=== PATIENT | male | born 1980 | race Two or more races ===

== ENCOUNTER 2024-06-28 10:25 | Emergency (ER) | payer MEDICAID, OTHER ==
[~2024-06-28] VITALS: Ht 160 cm; Wt 73.0 kg
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
[2024-06-28] MEDS: ONDANSETRON ODT 4 MG TAB PO ONE (11:25)
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
[2024-06-28] MEDS ORDERED: IBU600T PO ×2 (11:47)
[2024-06-28 12:05] VITALS: BP 113/83; PULSE 72; RESP 17; TEMP 97.3; O2SAT 99
== END 2024-06-28 12:08 | disposition home or self-care (01) ==
LOC: ER 10:25
DX: S86.812A Strain of other muscle(s) and tendon(s) at lower leg level, left leg, initial encounter (principal); S29.011A Strain of muscle and tendon of front wall of thorax, initial encounter; S06.0XAA Concussion with loss of consciousness status unknown, initial encounter; V89.2XXA Person injured in unspecified motor-vehicle accident, traffic, initial encounter; Y93.89 Activity, other specified; Y92.89 Other specified places as the place of occurrence of the external cause; Y99.8 Other external cause status
CPT/HCPCS: 70450; 71101; 73590; 99284; Q0162